=== PATIENT | female | born 1995 | race Caucasian/White ===

== ENCOUNTER 2016-09-12 16:45 | Emergency (ER) | payer OTHER ==
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
[2016-09-12 19:18] VITALS: BP 110/68
== END 2016-09-12 19:15 | disposition home or self-care (01) ==
LOC: ER 16:45
DX: M25.552 Pain in left hip (principal); V43.62XA Car passenger injured in collision with other type car in traffic accident, initial encounter
CPT/HCPCS: 99283

== ENCOUNTER 2016-11-04 15:24 | Emergency (ER) | payer OTHER ==
--- NOTE | 2016-11-04 15:39 | ER Document Report ---
ED Medical Screen (RME) - General Chief Complaint: Vaginal Bleeding Stated Complaint: VAGINAL BLEEDING Notes: G2, P1, A0 5 weeks with vaginal bleeding that started yesterday. Has some mild lower midline abdominal/pelvic pain. PMH: Hypothyroidism TRAVEL OUTSIDE OF THE [place] IN LAST 30 DAYS: No - Related Data Allergies/Adverse Reactions: No Known Allergies Allergy (Verified 11/04/16 15:28) Past Medical History - General Last Menstrual Period: September 26, 2016 Renal/ Medical History: Denies: Hx Peritoneal Dialysis - Immunizations Hx Diphtheria, Pertussis, Tetanus Vaccination: Yes Physical Exam - Vital signs Vitals: Temp Pulse Resp BP Pulse Ox 98.1 F 95 20 111/68 99 11/04/16 15:28 11/04/16 15:28 11/04/16 15:28 11/04/16 15:28 11/04/16 15:28 Course - Vital Signs Vital signs: Temp Pulse Resp BP Pulse Ox 98.1 F 95 20 111/68 99 11/04/16 15:28 11/04/16 15:28 11/04/16 15:28 11/04/16 15:28 11/04/16 15:28
--- NOTE | 2016-11-04 16:48 | ER Document Report ---
ED GI/ - General Mode of Arrival: Ambulatory Information source: Patient TRAVEL OUTSIDE OF THE [place] IN LAST 30 DAYS: No - HPI Patient complains to provider of: Abdominal pain - suprapubic, Vaginal bleeding. No: Hematuria Onset: This morning Location: Suprapubic, Vaginal Vaginal bleeding (Compared to normal period): [employer] D[employer] In[employer] Menstrual period history: - 5 weeks Associated symptoms: Other - see notes above <BUCK IGNACIO - Last Filed: 11/04/16 16:43> <APTITO CAVANAUGH - Last Filed: 11/04/16 18:19> - General Chief Complaint: Vaginal Bleeding Stated Complaint: VAGINAL BLEEDING Notes: 21 year old female (5 weeks) presents to the ED complaining of vaginal bleeding that started last night at approximately 0300. Patient reports that the bleeding is worse than spotting, but not like her normal periods which tend to be on the heavier side. Patient states that every time she wipes in the bathroom, she notices blood. Patient had a positive test at home and at her PCP 4 days ago. Patient denies any vaginal pain, but states that she does have some suprapubic discomfort. Patient denies hematuria. Patient's last menstrual period was on 09/26/2016. Patient does not have an OB here because she is moving in a couple days. (BUCK IGNACIO) - Related Data Allergies/Adverse Reactions: No Known Allergies Allergy (Verified 11/04/16 15:28) Past Medical History - General Information source: Patient Last Menstrual Period: September 26, 2016 - Social History Smoking Status: Never Smoker Chew tobacco use (# tins/day): No Frequency of alcohol use: None Drug Abuse: None Family History: Reviewed & Not Pertinent Patient has suicidal ideation: No Patient has homicidal ideation: No Renal/ Medical History: Denies: Hx Peritoneal Dialysis - Immunizations Hx Diphtheria, Pertussis, Tetanus Vaccination: Yes <BUCK IGNACIO - Last Filed: 11/04/16 16:43> Review of Systems - Review of Systems Constitutional: No symptoms reported EENT: No symptoms reported Cardiovascular: No symptoms reported Respiratory: No symptoms reported Gastrointestinal: See HPI, Abdominal pain - suprapubic Genitourinary: No symptoms reported. denies: Hematuria Female Genitourinary: See HPI, - 5 weeks, Vaginal bleeding Musculoskeletal: No symptoms reported Skin: No symptoms reported Hematologic/Lymphatic: No symptoms reported Neurological/Psychological: No symptoms reported -: Yes All other systems reviewed and negative <BUCK IGNACIO - Last Filed: 11/04/16 16:43> Physical Exam <BUCK IGNACIO - Last Filed: 11/04/16 16:43> <JOANAPATITO DE SOUZA - Last Filed: 11/04/16 18:19> - Vital signs Vitals: Temp Pulse Resp BP Pulse Ox 98.1 F 95 20 111/68 99 11/04/16 15:28 11/04/16 15:28 11/04/16 15:28 11/04/16 15:28 11/04/16 15:28 - Notes Notes: GENERAL: VS as per nursing doc. then nontoxic appearing and in no acute distress. HEAD: Atraumatic, normocephalic. EYES: Sclera anicteric, no conjunctival injection or discharge. ENT: Nares patent, oropharynx clear without exudates, moist mucous membranes. NECK: Normal range of motion, supple LUNGS: Breath sounds clear to auscultation bilaterally and equal. No wheezes rales or rhonchi. HEART: Regular rate and rhythm without murmurs. ABDOMEN: Soft, non-tender BACK: No CVA tenderness. : No tenderness, No active bleeding, a scant amount of blood noted posteriorly but no opening to the cervical os. EXTREMITIES: Normal range of motion, no edema. NEUROLOGICAL: Grossly normal PSYCH: Normal mood, normal affect. SKIN: Warm, dry, normal turgor, no lesions noted. (PATITO CAVANAUGH Tor) Course <BUCK IGNACIO - Last Filed: 11/04/16 16:43> - Diagnostic Test Radiology reviewed: Reports reviewed - Ultrasound showed a corpus luteum right ovary but no pole or gestational sac <JOANA,JOHN F - Last Filed: 11/04/16 18:19> - Re-evaluation Re-evalutation: 11/04/16 18:03 Discussed with patient follow-up in 48 hours for recheck of the beta hCG. Pelvic warning signs have been given as well. Discussed the differential diagnosis as well as presumptive diagnosis of threatened . They voice understanding. (PATITO CAVANAUGH) - Vital Signs Vital signs: Temp Pulse Resp BP Pulse Ox 98.1 F 95 20 111/68 99 11/04/16 15:28 11/04/16 15:28 11/04/16 15:28 11/04/16 15:28 11/04/16 15:28 - Laboratory Laboratory results interpreted by me: 11/04/16 16:10 Beta HCG, Quant 11.01 H Discharge <BUCK IGNACIO - Last Filed: 11/04/16 16:43> <PATITO CAVANAUGH - Last Filed: 11/04/16 18:19> - Discharge Clinical Impression: Threatened in early Condition: Good Disposition: HOME, SELF-CARE Instructions: Threatened Miscarriage ([facility]), Repeat Blood Test ([facility]), [facility]-Consulting [facility] Associate Doctors Additional Instructions: Return in 48 hours for further lab testing, which is a beta hCG. Complete pelvic rest without tampons or intercourse. Return sooner if you are having severe bleeding or other change, development of fever. Scribe Documentation - Scribe Written by Alisia:: Alisia Christine, 11/04/2016 1648 acting as scribe for :: Joana <BUCK IGNACIO - Last Filed: 11/04/16 16:43>
[2016-11-04 18:35] VITALS: BP 106/63
== END 2016-11-04 19:10 | disposition home or self-care (01) ==
LOC: ER 15:24
DX: O20.0 Threatened abortion (principal); O46.91 Antepartum hemorrhage, unspecified, first trimester; Z3A.01 Less than 8 weeks gestation of pregnancy
CPT/HCPCS: 36415; 76817; 84702; 86900; 86901; 99284